=== PATIENT | male | born 1945 | race Caucasian/White ===

== ENCOUNTER 2018-02-19 12:57 | Inpatient (IN) | payer OTHER ==
[~2018-02-19] VITALS: Ht 170.2 cm; Wt 73.3 kg
[2018-02-19] MEDS ORDERED: SODIUM BICARBONATE 8.4% 50 ML VIAL IV STA ×2 (13:01→13:05)
[2018-02-19] MEDS ORDERED: DEXTROSE 50% SYRINGE 50 ML IV STA (13:01)
[2018-02-19] MEDS ORDERED: INSULIN REGULAR, HUMAN 100 UNIT/1 ML 3ML VIAL IV ONE (13:15)
[2018-02-19] MEDS ORDERED: ASPIRIN 81 MG CHEW TAB PO ONE (13:30)
[2018-02-19 13:39] LABS: BASOPHILS % 0.2 % (0.0-1.0); EOSINOPHILS % 0.2 % (0.0-6.0); HEMATOCRIT 38.7 % (38.2-49.6); HEMOGLOBIN 12.6 g/dL (14.0-18.0); LYMPHOCYTES % 5.6 % (18.0-39.1); MEAN CORPUSCULAR HEMOGLOBIN 29.4 pg (28-32); MEAN CORPUSCULAR HGB CONC 32.6 g/dL (31-35); MEAN CORPUSCULAR VOLUME 90.2 fL (81-99); MONOCYTES # (AUTO) 0.7 (0.2-0.8); MONOCYTES % 4.2 % (4.4-11.3); NEUTROPHILS # (AUTO) 15.2 (2.1-6.9); NEUTROPHILS % 89.1 % (38.7-80.0); PLATELET COUNT 455 x10e3/uL (140-360); RED BLOOD COUNT 4.29 x10e6/uL (4.3-5.7); RED CELL DISTRIBUTION WIDTH 15.5 % (11.7-14.4)
[2018-02-19 13:43] LABS: INR 1.17
[2018-02-19 13:44] LABS: PARTIAL THROMBOPLASTIN TIME 39.5 seconds (23.8-35.5)
[2018-02-19 13:52] LABS: ALANINE AMINOTRANSFERASE 9 IU/L (0-55); ALBUMIN 2.8 g/dL (3.5-5.0); ALBUMIN/GLOBULIN RATIO 0.8 (0.8-2.0); ALKALINE PHOSPHATASE 56 IU/L (40-150); ANION GAP 14.2 mmol/L (8-16); BLOOD UREA NITROGEN 7 mg/dL (7-26); BUN/CREATININE RATIO 9 (6-25); CALCIUM 9.3 mg/dL (8.4-10.2); CARBON DIOXIDE 31 mmol/L (22-29); CHLORIDE 97 mmol/L (98-107); CREATINE KINASE 79 IU/L (30-200); CREATININE, SERUM 0.75 mg/dL (0.72-1.25); EST GLOMERULAR FILTRATION RATE > 60 ML/MIN (60-); GLUCOSE 88 mg/dL (74-118); POTASSIUM 3.2 mmol/L (3.5-5.1); SODIUM 139 mmol/L (136-145)
--- NOTE | 2018-02-19 14:46 | Diagnostic Imaging Report ---
EXAMINATION: CHEST SINGLE (NOT PORTABLE) INDICATION: Chest pain COMPARISON: None FINDINGS: TUBES and LINES: None. LUNGS: The lungs are hyperinflated. Linear opacity at the right lung base may reflect atelectasis or scarring. There is no evidence of pneumonia or pulmonary edema. PLEURA: Small right pleural effusion. There is either pleural thickening or a loculated pleural effusion on the left. HEART AND MEDIASTINUM: The cardiomediastinal silhouette is unremarkable. BONES AND SOFT TISSUES: No acute osseous lesion. Soft tissues are unremarkable. UPPER ABDOMEN: No free air under the diaphragm. No evidence of displaced fracture. IMPRESSION: Left sided pleural thickening which may reflect soft tissue or loculated left sided pleural effusion. Comparison with prior imaging or a chest CT may be considered for further evaluation. Small right pleural effusion with right basilar opacity, likely atelectasis or scarring. Emphysematous changes of the lungs. Signed by: Dr. Prakash Cain MD on 02/19/2018 2:43 PM
[2018-02-19 16:39] LABS: CLARITY,URINE SL CLOUDY (CLEAR); COLOR,URINE YELLOW (YELLOW); LEUKOCYTE ESTERASE ,URINE TRACE (NEGATIVE); NITRITE,URINE NEGATIVE (NEGATIVE); PROTEIN,URINE DIPSTICK 2+ (NEGATIVE)
[2018-02-19 16:40] LABS: BILIRUBIN,URINE 2+ (NEGATIVE); KETONES,URINE TRACE (NEGATIVE); URINE UROBILINOGEN 1 mg/dL (0.2 - 1)
[2018-02-19 16:51] LABS: BACTERIA,URINE MODERATE /HPF; EPITHELIAL CELLS,URINE FEW /LPF; RBC,URINE 0-5 /HPF (0-5); YEAST,URINE MODERATE
[2018-02-19] MEDS: SODIUM CHLORIDE 0.9% 1000ML 1,000 ML IV SCH (17:41)
[2018-02-19] MEDS: PIPER-TAZ 3.375 GM 50 ML IV SCH (17:41)
[2018-02-19 19:00] VITALS: BP 102/54
[2018-02-19 20:13] VITALS: BP 102/54
[2018-02-19] MEDS: VANCOMYCIN 1GM/NS 250 ML 250 ML IV SCH (21:02)
[2018-02-19] MEDS: MORPHINE SULFATE 2 MG/ML SYR IV PRN (21:03)
[2018-02-19] MEDS ORDERED: VITAMIN D1000 UNI1 PO (22:49)
[2018-02-19] MEDS ORDERED: FLOMAX0.4 MG PO (22:49)
[2018-02-19] MEDS ORDERED: GABAPENTIN300 MG PO (22:49)
[2018-02-19] MEDS ORDERED: BENZONATATE100 MG PO (22:49)
[2018-02-19] MEDS ORDERED: PENTOXIFYLLINE400 MG PO (22:49)
[2018-02-19] MEDS ORDERED: OMEPRAZOLE40 MG PO (22:49)
[2018-02-19] MEDS ORDERED: FENOFIBRATE145 MG PO (22:49)
[2018-02-19] MEDS ORDERED: ALLOPURINOL300 MG PO (22:49)
[2018-02-19] MEDS ORDERED: ALPRAZOLAM0.5 M1 (22:49)
[2018-02-19] MEDS ORDERED: COLCRYS0.6 MG PO (22:49)
[2018-02-19] MEDS ORDERED: VENTOLIN HFA18 GM INH (22:53)
[2018-02-19] MEDS ORDERED: METHOCARBAMOL750 MG PO (22:53)
[2018-02-19] MEDS ORDERED: LEVALBUTER0.63 MG/3 NEB (22:53)
[2018-02-20 00:01] VITALS: BP 108/76
[2018-02-20] MEDS: PIPER-TAZ 3.375 GM 50 ML IV SCH ×4 (00:08→21:27)
[2018-02-20 05:02] VITALS: BP 108/53
[2018-02-20 05:17] LABS: BASOPHILS # (AUTO) 0.1 (0.0-0.1); BASOPHILS % 0.5 % (0.0-1.0); EOSINOPHILS # (AUTO) 0.2 (0.0-0.4); EOSINOPHILS % 1.9 % (0.0-6.0); HEMATOCRIT 32.7 % (38.2-49.6); HEMOGLOBIN 10.6 g/dL (14.0-18.0); LYMPHOCYTES # (AUTO) 1.4 (1.0-3.2); LYMPHOCYTES % 13.5 % (18.0-39.1); MEAN CORPUSCULAR HEMOGLOBIN 29.3 pg (28-32); MEAN CORPUSCULAR HGB CONC 32.4 g/dL (31-35); MEAN CORPUSCULAR VOLUME 90.3 fL (81-99); MONOCYTES # (AUTO) 0.6 (0.2-0.8); MONOCYTES % 5.6 % (4.4-11.3); NEUTROPHILS # (AUTO) 7.9 (2.1-6.9); NEUTROPHILS % 77.3 % (38.7-80.0); PLATELET COUNT 385 x10e3/uL (140-360); RED BLOOD COUNT 3.62 x10e6/uL (4.3-5.7); RED CELL DISTRIBUTION WIDTH 15.7 % (11.7-14.4)
[2018-02-20 05:50] LABS: ANION GAP 11.7 mmol/L (8-16); BLOOD UREA NITROGEN 7 mg/dL (7-26); BUN/CREATININE RATIO 10 (6-25); CALCIUM 8.4 mg/dL (8.4-10.2); CARBON DIOXIDE 29 mmol/L (22-29); CHLORIDE 100 mmol/L (98-107); CREATININE, SERUM 0.68 mg/dL (0.72-1.25); EST GLOMERULAR FILTRATION RATE > 60 ML/MIN (60-); GLUCOSE 83 mg/dL (74-118); MAGNESIUM 1.5 MG/DL (1.3-2.1); SODIUM 138 mmol/L (136-145)
[2018-02-20 05:53] LABS: POTASSIUM 2.7 mmol/L (3.5-5.1)
[2018-02-20] MEDS ORDERED: POTASSIUM CHLORIDE 20 MEQ TAB CR PO STA (05:57)
[2018-02-20 06:13] LABS: CREATINE KINASE MB 0.7 ng/mL (0-5.0)
[2018-02-20 07:24] VITALS: BP 106/53
[2018-02-20] MEDS: SODIUM CHLORIDE 0.9% 1000ML 1,000 ML IV SCH ×2 (08:03→19:57)
[2018-02-20] MEDS: VANCOMYCIN 1GM/NS 250 ML 250 ML IV SCH ×2 (08:03→21:45)
[2018-02-20] MEDS: HYDROCODONE/APAP 5MG-325MG TAB PO PRN ×2 (09:53→16:35)
[2018-02-20] MEDS ORDERED: POTASSIUM CHLORIDE 20 MEQ TAB CR PO ONE (10:00)
--- NOTE | 2018-02-20 13:53 | History and Physical ---
CHIEF COMPLAINT: Fall. HISTORY OF PRESENT ILLNESS: This is a 72-year-old male with a past medical history of medical debilitation, seems to have also sacral wounds, a very poor historian in which he reports that he was at home in the bathroom in which he wanted to sit down on the edge of the bathtub and then slid himself to the ground. He denies falling to the ground. He denies any palpitations or chest pain. He denies any lightheadedness or dizziness. There are no reports of any weakness, slurred speech or any facial droop. Patient was seen and evaluated at bedside on the medical floor. Currently doing well with no other complaints at this time. In examining the patient, patient has significant sacral wounds in which he will likely need general surgery consultation. REVIEW OF SYSTEMS: PERTINENT POSITIVE: Patient slid to the ground. Multiple sacral wounds. PERTINENT NEGATIVE: Denies any chest pain, palpitation, nausea, vomiting, diarrhea, dysuria, hematuria, frequency, urgency, lightheadedness, dizziness, abdominal pain, headache, shortness of breath, cough, congestion, fever or any other complaints. REST OF THE 14 POINT REVIEW OF SYSTEMS: Have been reviewed with the patient and are negative. ALLERGIES: NO KNOWN DRUG ALLERGIES. HOME MEDICATIONS: Currently not available. The patient is a poor historian and has not provided us with the medications for home. PAST MEDICAL HISTORY: I know he is medically debilitated, has multiple sacral wounds. We do not have his home medications to assess his past medical issues. SURGICAL HISTORY: He has had wound debridements in the past. FAMILY HISTORY: Hypertension, diabetes. SOCIAL HISTORY: No drugs, no alcohol. He does not smoke. 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 VITAL SIGNS: Temperature is 98.1, pulse 61, respiratory rate is 18, blood pressure 106/53, pulse ox 94% on 1.5 liters of nasal cannula. LABORATORY DATA: Show white count is 10, hemoglobin 10.6, hematocrit is 32.7, platelets of 385. CHEMISTRY: Sodium 138, potassium 2.7, chloride is 100, bicarb is 29, anion gap of 11, BUN is 7, creatinine is 0.68, glucose is 83. Lactic acid 9.2, which is normal here. Calcium 8.4, magnesium 1.5. His troponins were all negative times 3. Albumin 2.8. Urinalysis: Trace leukocyte esterase, negative nitrite. Blood cultures are pending. IMAGING STUDIES: Chest x-ray shows left-sided pleural thickening which may represent soft tissue or likely a left-sided pleural effusion. Comparison with the CT chest would help further evaluation. PHYSICAL EXAM: GENERAL: Not in acute distress, alert, oriented times 3, cooperative on examination. HEENT: Head: Normocephalic, atraumatic. Eyes: Pupils equally round and reactive to light bilaterally. Extraocular muscles intact bilaterally. Neck: Supple. Good range of motion. Throat: No evidence of any erythema or exudates in the posterior pharynx, has poor dentition. PULMONARY: Clear to auscultation bilaterally. No wheezing, no rales, no rhonchi, no crackles appreciated. CARDIOVASCULAR: Positive S1, S2. No murmurs, rubs or gallops appreciated. ABDOMEN: Soft, nondistended, nontender to palpation. Bowel sounds positive. MUSCULOSKELETAL: Strength is 5/5 throughout. No evidence of any muscle deficit on examination. No weakness appreciated. He has an unstageable sacral wound with concerns of underlying whitish material and underlying infection. NEUROLOGIC: Cranial nerves 2-12 were grossly intact. N evidence of any neurological deficit on exam. SKIN: Intact, warm to touch. Good cap refill. PSYCHIATRIC: Normal affect and mood. EXTREMITIES: No edema. Good range of motion throughout. IMPRESSION: 1. Syncope but intentional in which the patient reports he slid to the ground. 2. Medically debilitated. 3. Unstageable sacral wounds concerning for infection. 4. History of anxiety. 5. Acid reflux. PLAN: At this time his troponins were negative. There are no reports of any seizure-like activity or any stroke-like symptoms. Patient reports that he slid to the ground to avoid a fall and he had no other symptoms when this occurred. From that standpoint, there is no further workup needed; but in relation to his unstageable sacral wounds, we are going to get general surgery consultation, get wound cultures and IV antibiotics. We are going to place on IV fluids. Get an ID consult and general surgery consultation. His chest x-ray shows concerning of pleural effusion or possible like some loculation, in which I will get a CT chest with IV contrast. We are going to replace the potassium. I am going to convert the patient from OBS to inpatient for further management and care. Put the patient on Lovenox, and he is on regular diet. Will get PT and OT evaluation. Patient will likely need shelter. Job#: [id number] EV
[2018-02-20 16:00] VITALS: BP_SYST 106; BP_SYST 116; BP_DIAS 53; BP_DIAS 71
[2018-02-20] MEDS: ENOXAPARIN SOD INJ 40 MG/0.4 ML SYR SC SCH (16:34)
[2018-02-20] MEDS: LORAZEPAM 0.5 MG TAB PO PRN (16:34)
--- NOTE | 2018-02-20 18:12 | Consultation ---
DATE OF CONSULTATION: INFECTIOUS DISEASE CONSULTATION REASON FOR CONSULTATION: Recommendation of antibiotic, decubitus ulcer. HISTORY OF PRESENT ILLNESS: This is a patient who is a 72-year-old white male who has history of multiple admissions. He is debilitated. The patient is bedbound, comes in with worsening condition overall. Apparently he fell. It was noted he had multiple decubitus ulcers, pressure ulcers; so, Infectious Disease was consulted to make recommendation towards antibiotic. The patient is not a good source of information at the present time, but he is lying in bed and I do not have any other information at the present time. LABORATORY DATA: Blood cultures pending. Admission white count 17, hemoglobin 12, hematocrit 38. Sodium 138, potassium 2.7, creatinine 0.68, calcium 8.4. PHYSICAL EXAMINATION: GENERAL: He is currently alert, oriented, does not seem to be in acute distress. VITALS: Stable, currently afebrile. HEENT: He does not appear icteric. NECK: Supple. CHEST: Clear. HEART: S1/S2. No S3, no S4. No murmur. ABDOMEN: Soft. BACK: He did have a decubitus ulcer on the sacral area which is unstageable at the present time. IMPRESSION: Decubitus ulcers sacral area pressure, will probably need surgical debridement. Obtain CT of scrotum and a CT of the sacral area and agree with vancomycin and Zosyn. Further recommendations to follow. Job#: [id number] EV
--- NOTE | 2018-02-20 18:20 | Diagnostic Imaging Report ---
EXAM: CT Chest WITH contrast 02/20/2018 11:54 AM INDICATION: \S\LOCULATED EFFUSION SEEN ON CXR \S\[id number] \S\[id number] COMPARISON: Chest radiograph 02/19/2018 TECHNIQUE: Chest was scanned utilizing a multidetector helical scanner from the lung apex through the level of the adrenal glands after administration of IV contrast. Coronal and sagittal reformations were obtained. IV CONTRAST: 100 mL of Isovue-370 ORAL CONTRAST: None COMPLICATIONS: None RADIATION DOSE: Total DLP: 534.9 mGy*cm Estimated effective dose: (DLP x 0.015 x size factor) mSv CTDIvol has been reviewed. It is below the limits set by the Radiation Protocol Committee (RPC). FINDINGS: LINES/ TUBES: None. LUNGS AND AIRWAYS: Medial right upper lobe pleural-based consolidation/masslike, measuring 3.4 x 2.5 cm and associated with surrounding septal thickening and bronchiectasis (series 3, image 35). Pleural-based consolidation in the right lower lobe with adjacent swirling of the vessels suggestive of round atelectasis. No suspicious pulmonary nodules or masses on the left. Moderate bilateral upper lobe predominant centrilobular and paraseptal emphysema. PLEURA: Trace low-attenuation right pleural effusion. Trace left pleural effusion with minimal pleural thickening and associated inward displacement of the left lateral chest wall due to multiple left-sided rib fractures correspond to the abnormality seen on chest radiograph. HEART AND MEDIASTINUM: The thyroid gland is normal. Few nonspecific subcentimeter right hilar and subcarinal lymph nodes. The right ventricle appears enlarged. The left ventricle is borderline in size. There is no pericardial effusion. Extensive coronary artery calcifications. Tortuous thoracic aorta and proximal arch branch vessels results in mild rightward deviation of the upper trachea. Moderate atherosclerotic calcification throughout the thoracic aorta and arch branch vessels. The main pulmonary artery is mildly enlarged measuring 3.4 cm in diameter. UPPER ABDOMEN: Few scattered hypodensities less than a centimeter throughout the liver are too small to characterize but may represent cysts. Mild thickening of the left adrenal gland without discrete nodule. BONES: Multiple bilateral healed rib fractures, including 4, 5, 6, 7, 8, and 9 on the right and 6, 7, 8, and 9 on the left with persistent nonunion of the bony fragments. Moderate multilevel degenerative changes of the thoracic spine. SOFT TISSUES: Unremarkable. IMPRESSION: 1. Multiple bilateral displaced rib fractures with minimal adjacent pleural thickening/chronic effusion accounts for the abnormality seen on chest radiograph. 2. Small right pleural effusion. 3. Right upper paratracheal consolidation/masslike may represent area of fibrosis related to prior infection. Recommend follow-up CT chest without contrast in 3 months. If patient is symptomatic or if high concern for malignancy, then recommend further evaluation with PET/CT. 4. Bilateral emphysema. Signed by: Dr. Marisol Parkinson M.D. on 02/20/2018 6:17 PM
[2018-02-20] MEDS ORDERED: SODIUM CHLORIDE 0.9% 50ML 50 ML ONE (18:28)
[2018-02-20] MEDS ORDERED: IOPAMIDOL 370 MG/ML 200 ML INFUS..BTL INJ ONE (18:28)
[2018-02-20 20:00] VITALS: BP 121/71
[2018-02-20] MEDS: ONDANSETRON HCL INJ 2 MG/ML VIAL IV PRN (20:09)
[2018-02-20] MEDS: MORPHINE SULFATE 2 MG/ML SYR IV PRN (20:09)
[2018-02-20 21:00] VITALS: BP 121/71
[2018-02-21] VITALS: BP 119/59
[2018-02-21] MEDS: LORAZEPAM 0.5 MG TAB PO PRN ×2 (00:03→16:08)
[2018-02-21] MEDS: HYDROCODONE/APAP 5MG-325MG TAB PO PRN ×3 (03:54→23:16)
[2018-02-21 04:00] VITALS: BP 126/60
[2018-02-21 05:38] LABS: BASOPHILS # (AUTO) 0.1 (0.0-0.1); BASOPHILS % 0.8 % (0.0-1.0); EOSINOPHILS # (AUTO) 0.4 (0.0-0.4); EOSINOPHILS % 6.2 % (0.0-6.0); HEMATOCRIT 32.7 % (38.2-49.6); HEMOGLOBIN 10.3 g/dL (14.0-18.0); LYMPHOCYTES # (AUTO) 1.2 (1.0-3.2); LYMPHOCYTES % 18.7 % (18.0-39.1); MEAN CORPUSCULAR HEMOGLOBIN 28.7 pg (28-32); MEAN CORPUSCULAR HGB CONC 31.5 g/dL (31-35); MEAN CORPUSCULAR VOLUME 91.1 fL (81-99); MONOCYTES # (AUTO) 0.4 (0.2-0.8); MONOCYTES % 6.6 % (4.4-11.3); NEUTROPHILS # (AUTO) 4.5 (2.1-6.9); NEUTROPHILS % 67.2 % (38.7-80.0); PLATELET COUNT 359 x10e3/uL (140-360); RED BLOOD COUNT 3.59 x10e6/uL (4.3-5.7); RED CELL DISTRIBUTION WIDTH 15.6 % (11.7-14.4)
[2018-02-21 05:59] LABS: ANION GAP 11.3 mmol/L (8-16); BLOOD UREA NITROGEN 6 mg/dL (7-26); BUN/CREATININE RATIO 9 (6-25); CALCIUM 8.5 mg/dL (8.4-10.2); CARBON DIOXIDE 27 mmol/L (22-29); CHLORIDE 104 mmol/L (98-107); CREATININE, SERUM 0.64 mg/dL (0.72-1.25); EST GLOMERULAR FILTRATION RATE > 60 ML/MIN (60-); GLUCOSE 79 mg/dL (74-118); POTASSIUM 3.3 mmol/L (3.5-5.1); SODIUM 139 mmol/L (136-145)
[2018-02-21] MEDS: PIPER-TAZ 3.375 GM 50 ML IV SCH ×3 (06:01→20:55)
[2018-02-21] MEDS: VANCOMYCIN 1GM/NS 250 ML 250 ML IV SCH ×2 (07:59→22:06)
[2018-02-21 08:00] VITALS: BP_SYST 126; BP_SYST 129; BP_DIAS 60; BP_DIAS 69
--- NOTE | 2018-02-21 08:56 | Consultation ---
DATE OF CONSULTATION: February 21, 2018 REFERRING PHYSICIAN: Dr. Tash Cao The patient is a 72-year-old male who was admitted the hospital after slipping to the ground and being unable to get up. He was found to have a sacral ulcer, as well as a superficial skin tear on his leg. Patient apparently frequently has problems with falling to the ground and being unable to get up. The patient does not give any further details of the events. He apparently has had the ulcer on his sacrum for quite a long time. PAST MEDICAL HISTORY: Significant for chronic medical debilitation, chronic sacral wounds. ALLERGIES: HE HAS NO ALLERGIES. Apparently, has had previous wound debridements. Further details of any surgery are not available. FAMILY HISTORY: Significant for hypertension and diabetes. SOCIAL HISTORY: The patient does not smoke cigarettes or drink alcohol. REVIEW OF SYSTEMS: As stated above although very limited. The patient gives a very limited history. He has not had any fever. PHYSICAL EXAMINATION GENERAL: The patient is awake and alert. VITALS: Normal. HEENT: Reveals no scleral icterus. NECK: Has no masses. LUNGS: Equal breath sounds are clear bilaterally. CARDIAC: Regular rate and rhythm with no murmur. ABDOMEN: Soft. There is no tenderness. No mass. EXTREMITIES: There is a skin tear with superficial skin loss in the left lateral lower leg. SKIN: There is an ulcer on the sacrum, which is full-thickness skin and with undermining and some purulent drainage. LAB TESTS: The white blood cell count today is normal and was 17,000 on admission, hemoglobin 10, hematocrit 32. Chemistries essentially normal except for slightly low potassium. ASSESSMENT: A 72-year-old male with chronic sacral ulcer with considerable undermining. At some point, once he is medically stable he will likely benefit from debridement of this ulcer. This was explained to the patient. There are no findings that would warrant immediate surgical intervention. Proposed surgery will probably be done sometime in the coming week. Thank you for asking me to see Mr. Valdez. Job#: [id number] BUNNY
[2018-02-21 12:00] VITALS: BP 133/66
[2018-02-21] MEDS: SODIUM CHLORIDE 0.9% 1000ML 1,000 ML IV SCH (12:00)
--- NOTE | 2018-02-21 12:56 | Progress Note ---
DATE: February 21, 2018 SUBJECTIVE: Patient is doing well with no complaints. He is scheduled for possible debridement on Thursday by general surgery. ID is following as well. His blood cultures were positive. Wound cultures are pending. OBJECTIVE VITAL SIGNS: Temperature is 96.9, pulse 79, respiratory rate 20, blood pressure 129/69, pulse ox 100% on 2 L nasal cannula. GENERAL: Not in acute distress. Alert and oriented times 3. Cooperative on examination. HEENT: Head is normocephalic and atraumatic. Eyes: Pupils equal, round and reactive to light bilaterally. Extraocular movements intact bilaterally. NECK: Supple. Good range of motion. Throat with no evidence of any erythema or exudates in the posterior pharynx. Has poor dentition. PULMONARY: Clear to auscultation bilaterally. No wheezing. No rales. No rhonchi. No crackles appreciated. CARDIOVASCULAR: Positive S1 and S2. No murmurs, rubs or gallops appreciated. ABDOMEN: Soft, nondistended and nontender to palpation. Bowel sounds present. MUSCULOSKELETAL: Strength is 5/5 throughout. No evidence of any muscle deficit on examination. No weakness appreciated. NEUROLOGICAL: Cranial nerves II-XII are grossly intact. No evidence of any neurological deficits on exam. SKIN: Intact. Warm to touch. Good cap refill. PSYCHIATRIC: Normal affect and mood. EXTREMITIES: No edema. Good range of motion throughout. LAB FINDINGS: Show white count is 6.6, hemoglobin 10.3, hematocrit 33, and platelets of 359,000. Chemistry: Sodium is 139, potassium 3.3, chloride 104, bicarb 27, anion gap of 11, BUN 6, creatinine 0.64, glucose is 79. Calcium is 8.5. IMPRESSION 1. Syncope, intentionally slipped to the ground. 2. Medically debilitated. 3. Unstageable sacral wounds with underlying infection. 4. History of anxiety. 5. Acid reflux. 6. Hypokalemia. PLAN: At this time, he is scheduled likely for Thursday to have a surgical debridement of his sacral wound. Continue with IV vanc and Zosyn. Will get CT of pelvis tomorrow with IV contrast as per ID recommendations. Replace his potassium. Continue with Lovenox for DVT prophylaxis. PT and OT eval. The patient in the long run will likely benefit from senior living facility. If not, a 24-hour continuous care like a halfway. Job#: [id number] RI
[2018-02-21] MEDS ORDERED: POTASSIUM CHLORIDE 10 MEQ TABCR PO ONE (14:30)
[2018-02-21] MEDS ORDERED: POTASSIUM CHLORIDE 20 MEQ TAB CR PO ONE (14:30)
[2018-02-21 16:00] VITALS: BP 97/68
[2018-02-21] MEDS: ENOXAPARIN SOD INJ 40 MG/0.4 ML SYR SC SCH (16:08)
[2018-02-21] MEDS ORDERED: GLYCOPYRROLATE INJ 1MG/ 5 ML SYR ONE (17:56)
[2018-02-21] MEDS ORDERED: NEOSTIGMINE 5 MG/5ML SYR ONE (17:56)
[2018-02-21] MEDS ORDERED: LIDOCAINE HCL 2% JELLY 5 ML TUBE ONE (17:56)
[2018-02-21] MEDS ORDERED: ROCURONIUM BROMIDE 10 MG/ML 5ML VIAL ONE (17:56)
[2018-02-21] MEDS ORDERED: LIDOCAINE HCL 2% LOCAL INJ 5 ML SDV VIAL INJ ONE (17:56)
[2018-02-21] MEDS ORDERED: SEVOFLURANE INHAL SOLN 250 ML PEN BTL ONE (17:56)
[2018-02-21] MEDS ORDERED: PROPOFOL IV EMULSION 10 MG/ML 20 ML VIAL ONE (17:56)
[2018-02-21 20:00] VITALS: BP 119/58
[2018-02-21] MEDS: ALPRAZOLAM 0.5 MG TAB PO PRN (20:55)
[2018-02-22] VITALS (9 sets, daily range): BP systolic 90–135; BP diastolic 58–73
[2018-02-22] MEDS: SODIUM CHLORIDE 0.9% 1000ML 1,000 ML IV SCH ×3 (02:16→22:02)
[2018-02-22 05:32] LABS: BASOPHILS # (AUTO) 0.1 (0.0-0.1); BASOPHILS % 0.8 % (0.0-1.0); EOSINOPHILS # (AUTO) 0.4 (0.0-0.4); EOSINOPHILS % 7.2 % (0.0-6.0); HEMATOCRIT 33.9 % (38.2-49.6); HEMOGLOBIN 10.8 g/dL (14.0-18.0); LYMPHOCYTES # (AUTO) 1.5 (1.0-3.2); LYMPHOCYTES % 24.4 % (18.0-39.1); MEAN CORPUSCULAR HGB CONC 31.9 g/dL (31-35); MEAN CORPUSCULAR VOLUME 90.9 fL (81-99); MONOCYTES # (AUTO) 0.5 (0.2-0.8); MONOCYTES % 7.3 % (4.4-11.3); NEUTROPHILS # (AUTO) 3.7 (2.1-6.9); PLATELET COUNT 359 x10e3/uL (140-360); RED BLOOD COUNT 3.73 x10e6/uL (4.3-5.7); RED CELL DISTRIBUTION WIDTH 15.3 % (11.7-14.4)
[2018-02-22 05:52] LABS: ANION GAP 12.7 mmol/L (8-16); BLOOD UREA NITROGEN < 5 mg/dL (7-26); CALCIUM 8.4 mg/dL (8.4-10.2); CARBON DIOXIDE 26 mmol/L (22-29); CHLORIDE 102 mmol/L (98-107); CREATININE, SERUM 0.61 mg/dL (0.72-1.25); EST GLOMERULAR FILTRATION RATE > 60 ML/MIN (60-); GLUCOSE 67 mg/dL (74-118); MAGNESIUM 1.7 MG/DL (1.3-2.1); POTASSIUM 3.7 mmol/L (3.5-5.1); SODIUM 137 mmol/L (136-145)
[2018-02-22] MEDS: PIPER-TAZ 3.375 GM 50 ML IV SCH ×3 (05:53→23:03)
[2018-02-22 05:56] LABS: BUN/CREATININE RATIO 8 (6-25)
[2018-02-22] MEDS: HYDROCODONE/APAP 5MG-325MG TAB PO PRN ×2 (07:00→21:56)
--- NOTE | 2018-02-22 09:09 | Progress Note ---
DATE: February 22, 2018 SUBJECTIVE: Patient is doing well with no other issues. I believe he is scheduled for debridement tomorrow by general surgery. ID wanted a CT of pelvis with IV contrast will be ordered. OBJECTIVE VITAL SIGNS: Temperature is 98.4, pulse 71, respiratory rate 18, blood pressure 119/61, pulse ox is 97% and he is on 3 L nasal cannula. GENERAL: Not in acute distress. Alert and oriented times 3. Cooperative on examination. HEENT: Head is normocephalic and atraumatic. Eyes: Pupils equal, round and reactive to light bilaterally. Extraocular movements intact bilaterally. NECK: Supple. Good range of motion. Throat with no evidence of any erythema or exudates in the posterior pharynx. Has poor dentition. PULMONARY: Clear to auscultation bilaterally. No wheezing. No rales. No rhonchi. No crackles appreciated. CARDIOVASCULAR: Positive S1 and S2. No murmurs, rubs or gallops appreciated. ABDOMEN: Soft, nondistended and nontender to palpation. Bowel sounds present. MUSCULOSKELETAL: Strength is 5/5 throughout. No evidence of any muscle deficit on examination. No weakness appreciated. NEUROLOGICAL: Cranial nerves II-XII are grossly intact. No evidence of any neurological deficits on exam. SKIN: Intact. Warm to touch. Good cap refill. PSYCHIATRIC: Normal affect and mood. EXTREMITIES: No edema. Good range of motion throughout. LAB FINDINGS: Show white count of 6.1, hemoglobin 10.8, hematocrit 34, and platelets of 359,000. Chemistry: Sodium 137, potassium 3.7, chloride 102, bicarb 26, anion gap of 12, BUN 5, creatinine 0.61. Magnesium 1.7. MICROBIOLOGY: There is some growth of gram-positive cocci in clusters. Wound cultures just moderate wbcs. Pending identification. IMAGING STUDIES: None. IMPRESSION 1. Syncope, intentionally slipped to the ground. 2. Medically debilitated. 3. Unstageable sacral wounds with underlying infection: Left lower extremity wound. 4. History of anxiety. 5. Acid reflux. 6. Hypokalemia, resolved. PLAN: At this time, he is scheduled for debridement on Thursday is what I understood from general surgery. He is currently not on the schedule, but general surgery has not rounded yet. Continue with IV antibiotics of vancomycin and Zosyn. ID is following. Will go ahead and order the CT of pelvis with IV contrast as per ID recommendations. Continue Lovenox for DVT prophylaxis. Continue working with PT and OT. He will likely end up in a intermediate facility due to his medical debilitation. The patient will be here for several more days for further management and care. Job#: [id number] BUNNY
[2018-02-22] MEDS: VANCOMYCIN 1GM/NS 250 ML 250 ML IV SCH (09:58)
[2018-02-22] MEDS: PANTOPRAZOLE SOD 40 MG TABEC PO SCH (10:16)
[2018-02-22] MEDS: PENTOXIFYLLINE 400 MG TAB CR PO SCH (10:16)
[2018-02-22] MEDS: GABAPENTIN 300 MG CAP PO SCH (10:16)
[2018-02-22] MEDS: TAMSULOSIN HCL 0.4 MG CAP PO SCH (10:16)
[2018-02-22] MEDS ORDERED: ALBUTEROL/IPRATROPIUM 3 ML NEB NEB SCH (11:00)
[2018-02-22] MEDS: LEVALBUTEROL HCL SOLN NEBU 0.63 MG/3 ML NEB INH SCH ×3 (15:20→23:05)
[2018-02-22] MEDS: ENOXAPARIN SOD INJ 40 MG/0.4 ML SYR SC SCH (17:04)
[2018-02-22] MEDS: ALPRAZOLAM 0.5 MG TAB PO PRN (23:03)
[2018-02-23] VITALS (8 sets, daily range): BP systolic 99–131; BP diastolic 53–71
[2018-02-23] MEDS: LEVALBUTEROL HCL SOLN NEBU 0.63 MG/3 ML NEB INH SCH ×6 (02:42→23:45)
[2018-02-23] MEDS: HYDROCODONE/APAP 5MG-325MG TAB PO PRN ×4 (04:00→21:10)
[2018-02-23] MEDS ORDERED: LIDOCAINE HCL 1% LOCAL INJ 20 ML VIAL ONE (08:08)
[2018-02-23] MEDS: FENOFIBRATE 160 MG TAB PO SCH (09:00)
--- NOTE | 2018-02-23 09:08 | Progress Note ---
DATE: February 23, 2018 SUBJECTIVE: Patient is currently in the OR. I was unable to see him. OBJECTIVE: Vital signs: Temperature is 96.6, pulse 68, respiratory rate 18, blood pressure 131/71, pulse ox 98% on 2 L nasal cannula. Currently, he is in the OR and unable to perform examination. LAB FINDINGS: White count 6.1, hemoglobin 10.8, hematocrit 34, and platelets of 359. Chemistry: Sodium 137, potassium 3.7, chloride 102, bicarb 26, creatinine 0.61, BUN less than 5. MICROBIOLOGY: His wound culture shows MRSA. His blood cultures are coag-negative positive 2 out of 2. IMAGING STUDIES: He refused a CT pelvis yesterday. IMPRESSION 1. Syncope, intentionally slipped to the ground. 2. Medically debilitated. 3. Unstageable sacral wounds with underlying infection. Now in the operating room to have debridement. 4. Left lower extremity wound. 5. History of anxiety. 6. Acid reflux. PLAN: At this time, the patient is currently in the OR, and I was unable to evaluate him. We are going to continue the same plan of care. His wound culture is positive for MRSA. Blood cultures are coag-negative staph times 2. The patient is on IV antibiotics, and ID is following. The overall plan is to discharge the patient eventually to a fpc facility, requiring IV antibiotics long term care phlebotomist. The only issue is I do not know the length of therapy of the IV antibiotics, which we will find out by ID. The patient would benefit likely going to a fpc facility, though I feel he does not want to go there. I addressed this with the nursing staff to talk with case management, so case management can talk to the patient. Will continue with PT and OT while here. Job#: [id number]
[2018-02-23] MEDS: PIPER-TAZ 3.375 GM 50 ML IV SCH ×2 (10:18→16:13)
[2018-02-23] MEDS: TAMSULOSIN HCL 0.4 MG CAP PO SCH (10:18)
[2018-02-23] MEDS: PENTOXIFYLLINE 400 MG TAB CR PO SCH (10:19)
[2018-02-23] MEDS: GABAPENTIN 300 MG CAP PO SCH (10:19)
[2018-02-23] MEDS: PANTOPRAZOLE SOD 40 MG TABEC PO SCH (10:19)
[2018-02-23] MEDS: VANCOMYCIN 1GM/NS 250 ML 250 ML IV SCH ×2 (12:38→21:00)
--- NOTE | 2018-02-23 13:13 | Operative Report ---
DATE OF PROCEDURE: February 23, 2018 PREOPERATIVE DIAGNOSIS: Sacral ulcer. POSTOPERATIVE DIAGNOSIS: Sacral ulcer. PROCEDURE: Excisional debridement of sacral ulcer, skin, and subcutaneous tissue, 80 sq. cm. STAFF DEVELOPMENT MANAGER: None. ANESTHESIA: General endotracheal. INDICATIONS AND FINDINGS: Patient is a 72-year-old male admitted to the hospital after a fall, has ulcer on his sacrum with a large undermined area with purulent drainage. Surgery was done on large undermined area about 8 x 10 cm from ulcer, which was opened up and excised back to healthy tissue. There was granulation tissue and small amount of purulence. Sample taken for culture and sensitivity. Area of debridement was about 8 x 10 cm. TECHNIQUE: After adequate general endotracheal anesthesia with patient in right side down position, the sacral area was prepped and draped in sterile fashion with Betadine solution. The sacral ulcer was excised. There was a large undermined area and this was excised back to healthy tissue. There was no undermining. The area of debridement was about 8 x 10 cm, involved skin and subcutaneous tissue. Culture was taken from the wound. Once all the undermined tissue was excised, some granulation tissue was cauterized. Hemostasis was achieved with electrocautery. The wound was irrigated with saline. It was then dressed up with saline moistened gauze and a sterile dressing applied. The patient tolerated the procedure well. Estimated blood loss was 50 mL. There were no complications. All counts were correct. Patient was taken to the recovery room in satisfactory condition. Job#: [id number] MAYANK
[2018-02-23] MEDS: SODIUM CHLORIDE 0.9% 1000ML 1,000 ML IV SCH (13:39)
[2018-02-23] MEDS: ENOXAPARIN SOD INJ 40 MG/0.4 ML SYR SC SCH (16:13)
[2018-02-23] MEDS ORDERED: FENTANYL CITRATE/PF 100MCG/2 ML INJ ONE (16:51)
[2018-02-23] MEDS: ALPRAZOLAM 0.5 MG TAB PO PRN (21:11)
--- NOTE | 2018-02-23 21:21 | Diagnostic Imaging Report ---
Examination: Single AP view of the chest. COMPARISON: None. INDICATION: Line placement DISCUSSION: See impression IMPRESSION: 1. Right PICC line with tip overlying the cavoatrial junction 2. Right mid lung atelectasis. Signed by: Dr. Garry Vásquez M.D. on 02/23/2018 7:46 PM
[2018-02-24] VITALS: BP 123/63
[2018-02-24] MEDS: ONDANSETRON HCL INJ 2 MG/ML VIAL IV PRN (00:18)
[2018-02-24] MEDS: MORPHINE SULFATE INJ 4 MG/ML INJ IV PRN (00:18)
[2018-02-24] MEDS: HYDROCODONE/APAP 5MG-325MG TAB PO PRN ×4 (01:31→21:30)
[2018-02-24] MEDS: LEVALBUTEROL HCL SOLN NEBU 0.63 MG/3 ML NEB INH SCH ×6 (02:38→23:00)
[2018-02-24] MEDS: SODIUM CHLORIDE 0.9% 1000ML 1,000 ML IV SCH ×2 (03:22→18:11)
[2018-02-24 05:54] LABS: BASOPHILS % 0.5 % (0.0-1.0); EOSINOPHILS # (AUTO) 0.3 (0.0-0.4); EOSINOPHILS % 4.4 % (0.0-6.0); HEMATOCRIT 30.9 % (38.2-49.6); HEMOGLOBIN 9.9 g/dL (14.0-18.0); LYMPHOCYTES # (AUTO) 1.6 (1.0-3.2); LYMPHOCYTES % 27.1 % (18.0-39.1); MEAN CORPUSCULAR HEMOGLOBIN 29.3 pg (28-32); MEAN CORPUSCULAR VOLUME 91.4 fL (81-99); MONOCYTES # (AUTO) 0.4 (0.2-0.8); NEUTROPHILS # (AUTO) 3.6 (2.1-6.9); NEUTROPHILS % 60.7 % (38.7-80.0); PLATELET COUNT 306 x10e3/uL (140-360); RED BLOOD COUNT 3.38 x10e6/uL (4.3-5.7); RED CELL DISTRIBUTION WIDTH 15.5 % (11.7-14.4)
[2018-02-24 06:12] LABS: ANION GAP 8.5 mmol/L (8-16); BLOOD UREA NITROGEN < 5 mg/dL (7-26); CALCIUM 8.2 mg/dL (8.4-10.2); CARBON DIOXIDE 26 mmol/L (22-29); CHLORIDE 106 mmol/L (98-107); CREATININE, SERUM 0.65 mg/dL (0.72-1.25); EST GLOMERULAR FILTRATION RATE > 60 ML/MIN (60-); GLUCOSE 71 mg/dL (74-118); POTASSIUM 3.5 mmol/L (3.5-5.1); SODIUM 137 mmol/L (136-145)
[2018-02-24 06:15] LABS: BUN/CREATININE RATIO 8 (6-25)
[2018-02-24] MEDS: TAMSULOSIN HCL 0.4 MG CAP PO SCH (08:19)
[2018-02-24] MEDS: PIPER-TAZ 3.375 GM 50 ML IV SCH ×3 (08:19→18:11)
[2018-02-24] MEDS: PANTOPRAZOLE SOD 40 MG TABEC PO SCH (08:19)
[2018-02-24] MEDS: GABAPENTIN 300 MG CAP PO SCH (08:19)
[2018-02-24] MEDS: PENTOXIFYLLINE 400 MG TAB CR PO SCH (08:19)
[2018-02-24 08:20] VITALS: BP 123/63
--- NOTE | 2018-02-24 08:55 | Progress Note ---
DATE: February 24, 2018 SUBJECTIVE: Patient had his sacral debrided yesterday by general surgery. Currently, doing well with no complaints. He is sitting on the edge of the bed eating his breakfast. I discussed the case yesterday with case management, and that the patient will need to pay $100 per day for fdc, which the patient refuses. The only option for the patient is to be discharged home with IV antibiotics. PICC line has been placed since yesterday. OBJECTIVE VITAL SIGNS: Temperature is 98.9, pulse 92, respiratory rate 20, blood pressure 123/63, O2 sat 97% on 2 L nasal cannula. GENERAL: Not in acute distress. Alert and oriented times 3. Cooperative on examination. HEENT: Head is normocephalic and atraumatic. Eyes: Pupils equal, round and reactive to light bilaterally. Extraocular movements intact bilaterally. NECK: Supple. Good range of motion. Throat with no evidence of any erythema or exudates in the posterior pharynx. Has poor dentition. PULMONARY: Clear to auscultation bilaterally. No wheezing. No rales. No rhonchi. No crackles appreciated. CARDIOVASCULAR: Positive S1 and S2. No murmurs, rubs or gallops appreciated. ABDOMEN: Soft, nondistended and nontender to palpation. Bowel sounds present. MUSCULOSKELETAL: Strength is 5/5 throughout. No evidence of any muscle deficit on examination. No weakness appreciated. NEUROLOGICAL: Cranial nerves II-XII are grossly intact. No evidence of any neurological deficits on exam. SKIN: Intact. Warm to touch. Good cap refill. PSYCHIATRIC: Normal affect and mood. EXTREMITIES: No edema. Good range of motion throughout. LAB FINDINGS: Show white count of 5.8, hemoglobin 9.9, hematocrit 31, and platelets of 306,000. Chemistry: Sodium 137, potassium 3.5, chloride 106, bicarb 26, anion gap 8.5, BUN 5, creatinine 0.65, glucose 71. MICRO: His wound culture from yesterday's debridement is still pending. The previous wound culture showed MRSA. His blood culture showed coag-negative staph. IMAGING STUDIES: None. IMPRESSION 1. Syncope, all resolved. 2. Medically debilitated. 3. Unstageable sacral wounds with underlying infection: Status post debridement performed on February 23, 2018, by Dr. Ding, now awaiting for wound culture. 4. Left lower extremity wound, debrided. 5. History of anxiety. 6. Acid reflux. PLAN: At this time, he had his wound debrided yesterday on February 23, 2018. Pending wound culture. ID is following. PICC line was placed yesterday. Will await for ID recommendations in terms of length of therapy of IV antibiotics. The patient has benefits of fdc, but he has to pay $100 a day in which the patient refuses. The only option for him is to go home with home health and home wound care with IV antibiotics. The patient verbalized understanding. Will also arrange for home PT and OT as well. Otherwise, he is stable with no complaints. Will continue to follow. Job#: [id number] BUNYN
[2018-02-24] MEDS: VANCOMYCIN 1GM/NS 250 ML 250 ML IV SCH ×2 (09:00→20:39)
[2018-02-24] MEDS: FENOFIBRATE 160 MG TAB PO SCH (09:00)
[2018-02-24] MEDS: ALPRAZOLAM 0.5 MG TAB PO PRN ×2 (09:15→18:11)
[2018-02-24 12:00] VITALS: BP 89/54
[2018-02-24] MEDS: COLLAGENASE 5 GM TUBE TOP SCH (15:25)
[2018-02-24 16:00] VITALS: BP 108/54
[2018-02-24] MEDS: ENOXAPARIN SOD INJ 40 MG/0.4 ML SYR SC SCH (18:11)
[2018-02-24 20:00] VITALS: BP 96/50
[2018-02-24] MEDS ORDERED: COLLAGENASE 5 GM TUBE TOP SCH (21:00)
[2018-02-25] VITALS (9 sets, daily range): BP systolic 101–131; BP diastolic 55–66
[2018-02-25] MEDS: PIPER-TAZ 3.375 GM 50 ML IV SCH ×3 (00:18→17:35)
[2018-02-25] MEDS: ALPRAZOLAM 0.5 MG TAB PO PRN ×3 (00:18→18:14)
[2018-02-25] MEDS: MORPHINE SULFATE INJ 4 MG/ML INJ IV PRN (02:31)
[2018-02-25] MEDS: HYDROCODONE/APAP 5MG-325MG TAB PO PRN ×3 (06:20→20:56)
[2018-02-25] MEDS: LEVALBUTEROL HCL SOLN NEBU 0.63 MG/3 ML NEB INH SCH ×5 (07:00→23:38)
[2018-02-25] MEDS: FENOFIBRATE 160 MG TAB PO SCH (09:00)
[2018-02-25] MEDS: TAMSULOSIN HCL 0.4 MG CAP PO SCH (09:03)
[2018-02-25] MEDS: GABAPENTIN 300 MG CAP PO SCH (09:03)
[2018-02-25] MEDS: SODIUM CHLORIDE 0.9% 1000ML 1,000 ML IV SCH ×2 (09:03→20:56)
[2018-02-25] MEDS: PANTOPRAZOLE SOD 40 MG TABEC PO SCH (09:03)
[2018-02-25] MEDS: VANCOMYCIN 1GM/NS 250 ML 250 ML IV SCH ×2 (09:03→20:56)
[2018-02-25] MEDS: PENTOXIFYLLINE 400 MG TAB CR PO SCH (09:03)
[2018-02-25] MEDS: COLLAGENASE 5 GM TUBE TOP SCH (09:03)
--- NOTE | 2018-02-25 10:36 | Progress Note ---
DATE: February 25, 2018 SUBJECTIVE: Patient is doing well today with no complaints. He now has a wound VAC to the sacral region. Will arrange with case management for home wound VAC. OBJECTIVE VITAL SIGNS: Temperature is 98.3, pulse 84, respiratory rate 20, blood pressure 108/55, pulse ox 96% on room air. LABS: No new labs today. MICROBIOLOGY: The wound cultures from the surgical debridement show no growth, but the initial wound culture showed MRSA staph. IMAGING STUDIES: None. PHYSICAL EXAMINATION GENERAL: Not in acute distress. Alert and oriented times 3. Cooperative on examination. HEENT: Head is normocephalic and atraumatic. Eyes: Pupils are equal, round and reactive to light bilaterally. Extraocular movements intact bilaterally. NECK: Supple. Good range of motion. THROAT: No evidence of any erythema or exudates in the posterior pharynx, has poor dentition. PULMONARY: Clear to auscultation bilaterally. No wheezing. No rales. No rhonchi. No crackles appreciated. CARDIOVASCULAR: Positive S1 and S2. No murmurs, rubs or gallops appreciated. ABDOMEN: Soft, nondistended and nontender to palpation. Bowel sounds present. MUSCULOSKELETAL: Strength is 5/5 throughout. No evidence of any musculoskeletal deficit on examination. No weakness appreciated. NEUROLOGICAL: Cranial nerves II-XII are grossly intact. No evidence of any neurological deficits on exam. SKIN: Intact. Warm to touch. Good cap refill. PSYCHIATRIC: Normal affect and mood. EXTREMITIES: No edema. Good range of motion throughout. IMPRESSION 1. Syncope, all resolved. 2. Medically debilitated. 3. Unstageable sacral wound with underlying infection, status post debridement on February 23, 2018, by Dr. Ding, now has a wound VAC. 4. Left lower extremity wound, debrided. 5. History of anxiety. 6. Acid reflux. PLAN: At this time, will continue with IV antibiotics. He will be eventually discharged on oral doxycycline for 4 weeks. He now has a wound VAC, which I will arrange with case management. I discussed this with the floor nurse as well. Continue with PT and OT and resume same home medications. Continue same plan of care. Job#: [id number]
[2018-02-25] MEDS: ENOXAPARIN SOD INJ 40 MG/0.4 ML SYR SC SCH (17:35)
[2018-02-26 00:20] VITALS: BP 111/58
[2018-02-26] MEDS: PIPER-TAZ 3.375 GM 50 ML IV SCH ×3 (00:40→16:20)
[2018-02-26] MEDS: ALPRAZOLAM 0.5 MG TAB PO PRN ×3 (01:32→20:52)
[2018-02-26 05:16] VITALS: BP 124/59
[2018-02-26] MEDS: HYDROCODONE/APAP 5MG-325MG TAB PO PRN ×3 (06:40→20:51)
[2018-02-26] MEDS: LEVALBUTEROL HCL SOLN NEBU 0.63 MG/3 ML NEB INH SCH ×5 (07:00→23:00)
[2018-02-26 07:10] VITALS: BP 117/61
[2018-02-26] MEDS: FENOFIBRATE 160 MG TAB PO SCH (09:00)
[2018-02-26] MEDS: PENTOXIFYLLINE 400 MG TAB CR PO SCH (09:29)
[2018-02-26] MEDS: PANTOPRAZOLE SOD 40 MG TABEC PO SCH (09:29)
[2018-02-26] MEDS: GABAPENTIN 300 MG CAP PO SCH (09:29)
[2018-02-26] MEDS: TAMSULOSIN HCL 0.4 MG CAP PO SCH (09:29)
[2018-02-26] MEDS: COLLAGENASE 5 GM TUBE TOP SCH (09:53)
--- NOTE | 2018-02-26 10:03 | Progress Note ---
DATE: February 26, 2018 SUBJECTIVE: Patient is doing well. He still has a wound VAC. He will continue with the wound VAC hopefully. We are trying to arrange for outpatient wound care clinic. OBJECTIVE VITAL SIGNS: Temperature is 97, pulse 89, respiratory rate 20, blood pressure 124/59. Pulse ox is 97% on room air. LAB FINDINGS: White count 5.8, hemoglobin 9.9, hematocrit 31, platelets 306. Chemistries: No new chemistry. MICROBIOLOGY: Nothing new. IMAGING: Nothing new. PHYSICAL EXAMINATION GENERAL: Not in acute distress. Alert and oriented times 3. Cooperative on examination. HEENT: Head is normocephalic and atraumatic. Eyes: Pupils are equal, round and reactive to light bilaterally. Extraocular movements intact bilaterally. NECK: Supple. Good range of motion. THROAT: No evidence of any erythema or exudates in the posterior pharynx, has poor dentition. PULMONARY: Clear to auscultation bilaterally. No wheezing. No rales. No rhonchi. No crackles appreciated. CARDIOVASCULAR: Positive S1 and S2. No murmurs, rubs or gallops appreciated. ABDOMEN: Soft, nondistended and nontender to palpation. Bowel sounds present. MUSCULOSKELETAL: Strength is 5/5 throughout. No evidence of any musculoskeletal deficit on examination. No weakness appreciated. NEUROLOGICAL: Cranial nerves II-XII are grossly intact. No evidence of any neurological deficits on exam. SKIN: Intact. Warm to touch. Good cap refill. PSYCHIATRIC: Normal affect and mood. EXTREMITIES: No edema. Good range of motion throughout. IMPRESSION 1. Syncope, resolved. 2. Medically debilitated. 3. Unstageable sacral wound with underlying infection, status post debridement on February 23, 2018, by Dr. Ding, now has a wound VAC. 4. Left lower extremity wound, debrided. 5. History of anxiety. 6. Acid reflux. PLAN: At this time, will continue with IV antibiotics. If he is approved for the wound VAC at the wound care clinic, he will be discharged later today. The prescription for doxycycline for 4 weeks is already in the chart. There will be no changes in his other home medications. He will continue with the same regimen. We are going to arrange wet-to-dry dressing as well as PT and OT for home. I have discussed this with the nursing staff as well as case management. Job#: [id number] MH
[2018-02-26] MEDS: VANCOMYCIN 1GM/NS 250 ML 250 ML IV SCH ×2 (10:23→20:51)
[2018-02-26 10:41] VITALS: BP 117/61
[2018-02-26 12:45] VITALS: BP 129/60
[2018-02-26] MEDS: SODIUM CHLORIDE 0.9% 1000ML 1,000 ML IV SCH ×2 (14:45→22:02)
[2018-02-26] MEDS: ENOXAPARIN SOD INJ 40 MG/0.4 ML SYR SC SCH (17:23)
[2018-02-26 20:53] VITALS: BP 146/65
[2018-02-27] VITALS (8 sets, daily range): BP systolic 117–162; BP diastolic 54–76
[2018-02-27] MEDS: LEVALBUTEROL HCL SOLN NEBU 0.63 MG/3 ML NEB INH SCH ×5 (07:10→20:31)
[2018-02-27] MEDS: HYDROCODONE/APAP 5MG-325MG TAB PO PRN ×3 (07:21→22:02)
[2018-02-27] MEDS: FENOFIBRATE 160 MG TAB PO SCH (09:00)
[2018-02-27] MEDS: ALPRAZOLAM 0.5 MG TAB PO PRN ×2 (09:22→22:02)
[2018-02-27] MEDS: TAMSULOSIN HCL 0.4 MG CAP PO SCH (09:23)
[2018-02-27] MEDS: PANTOPRAZOLE SOD 40 MG TABEC PO SCH (09:23)
[2018-02-27] MEDS: PENTOXIFYLLINE 400 MG TAB CR PO SCH (09:23)
[2018-02-27] MEDS: PIPER-TAZ 3.375 GM 50 ML IV SCH ×4 (09:23→23:48)
[2018-02-27] MEDS: GABAPENTIN 300 MG CAP PO SCH (09:23)
[2018-02-27] MEDS: COLLAGENASE 5 GM TUBE TOP SCH (10:09)
[2018-02-27] MEDS: VANCOMYCIN 1GM/NS 250 ML 250 ML IV SCH ×2 (10:09→21:20)
--- NOTE | 2018-02-27 10:37 | Progress Note ---
DATE: February 27, 2018 INTERNAL MEDICINE PROGRESS NOTE SUBJECTIVE: Patient is doing well. Working with physical therapy when I evaluated him. We are waiting for wound VAC to be approved by the insurance company. OBJECTIVE VITAL SIGNS: Temperature is 98, pulse 73, respiratory rate is 18, blood pressure is 134/62, pulse ox 98% on room air. GENERAL: Not in acute distress. Alert and oriented times 3. Cooperative on examination. HEENT: Head is normocephalic and atraumatic. Eyes: Pupils equal, round and reactive to light bilaterally. Extraocular movements intact bilaterally. NECK: Supple. Good range of motion. Throat with no evidence of any erythema or exudates in the posterior pharynx. Has poor dentition. PULMONARY: Clear to auscultation bilaterally. No wheezing. No rales. No rhonchi. No crackles appreciated. CARDIOVASCULAR: Positive S1 and S2. No murmurs, rubs or gallops appreciated. ABDOMEN: Soft, nondistended and nontender to palpation. Bowel sounds present. MUSCULOSKELETAL: Strength is 5/5 throughout. No evidence of any muscle deficit on examination. No weakness appreciated. NEUROLOGICAL: Cranial nerves II-XII are grossly intact. No evidence of any neurological deficits on exam. SKIN: Intact. Warm to touch. Good cap refill. PSYCHIATRIC: Normal affect and mood. EXTREMITIES: No edema. Good range of motion throughout. LAB FINDINGS: Show white count is 5.8, hemoglobin 9.9, hematocrit is 31, and platelets of 306,000. Sodium 137, potassium 3.5, chloride 106, bicarb 26, anion gap 8.5, BUN 5, creatinine is 0.65, and glucose 71. MICROBIOLOGY: Blood cultures repeat are pending. IMPRESSION 1. Syncope, resolved. 2. Medically debilitated. 3. Unstageable sacral wound with underlying infection: Status post debridement on February 23, 2018, by Dr. Ding. Now, has a wound VAC and will be discharged with the wound VAC. 4. Left lower extremity wound, debrided. 5. History of anxiety. 6. Acid reflux. PLAN: At this time, the patient is to continue with IV vancomycin while in the hospital. We are waiting for wound VAC and wound care clinic to be approved hopefully by Thursday. He will continue to work with PT and OT. He will be going home on doxycycline for 4 weeks in which a script is ready in the chart. We are going to get a.m. labs, CBC and chemistry. Will continue same plan of care. I discussed the case with the floor nurse. Job#: [id number] [place]
[2018-02-27] MEDS: SODIUM CHLORIDE 0.9% 1000ML 1,000 ML IV SCH ×2 (11:22→23:48)
[2018-02-27] MEDS: ENOXAPARIN SOD INJ 40 MG/0.4 ML SYR SC SCH (16:21)
[2018-02-28] VITALS (7 sets, daily range): BP systolic 103–149; BP diastolic 53–67
[2018-02-28 05:53] LABS: BASOPHILS # (AUTO) 0.1 (0.0-0.1); BASOPHILS % 1.2 % (0.0-1.0); EOSINOPHILS # (AUTO) 0.3 (0.0-0.4); EOSINOPHILS % 5.2 % (0.0-6.0); HEMATOCRIT 34.1 % (38.2-49.6); HEMOGLOBIN 10.7 g/dL (14.0-18.0); LYMPHOCYTES # (AUTO) 1.6 (1.0-3.2); LYMPHOCYTES % 28.6 % (18.0-39.1); MEAN CORPUSCULAR HEMOGLOBIN 28.7 pg (28-32); MEAN CORPUSCULAR HGB CONC 31.4 g/dL (31-35); MEAN CORPUSCULAR VOLUME 91.4 fL (81-99); MONOCYTES # (AUTO) 0.5 (0.2-0.8); MONOCYTES % 7.8 % (4.4-11.3); NEUTROPHILS # (AUTO) 3.3 (2.1-6.9); PLATELET COUNT 310 x10e3/uL (140-360); RED BLOOD COUNT 3.73 x10e6/uL (4.3-5.7); RED CELL DISTRIBUTION WIDTH 15.9 % (11.7-14.4)
[2018-02-28 06:08] LABS: ANION GAP 12.4 mmol/L (8-16); BLOOD UREA NITROGEN < 5 mg/dL (7-26); CARBON DIOXIDE 25 mmol/L (22-29); CHLORIDE 108 mmol/L (98-107); CREATININE, SERUM 0.72 mg/dL (0.72-1.25); EST GLOMERULAR FILTRATION RATE > 60 ML/MIN (60-); GLUCOSE 71 mg/dL (74-118); POTASSIUM 3.4 mmol/L (3.5-5.1); SODIUM 142 mmol/L (136-145)
[2018-02-28 06:12] LABS: BUN/CREATININE RATIO 7 (6-25)
[2018-02-28] MEDS: HYDROCODONE/APAP 5MG-325MG TAB PO PRN ×3 (06:17→21:18)
[2018-02-28] MEDS: LEVALBUTEROL HCL SOLN NEBU 0.63 MG/3 ML NEB INH SCH ×5 (07:40→23:00)
[2018-02-28] MEDS: PIPER-TAZ 3.375 GM 50 ML IV SCH ×2 (08:25→16:49)
[2018-02-28] MEDS: FENOFIBRATE 160 MG TAB PO SCH (09:00)
[2018-02-28] MEDS: COLLAGENASE 5 GM TUBE TOP SCH (09:32)
[2018-02-28] MEDS: GABAPENTIN 300 MG CAP PO SCH (09:32)
[2018-02-28] MEDS: PANTOPRAZOLE SOD 40 MG TABEC PO SCH (09:32)
[2018-02-28] MEDS: TAMSULOSIN HCL 0.4 MG CAP PO SCH (09:32)
[2018-02-28] MEDS: VANCOMYCIN 1GM/NS 250 ML 250 ML IV SCH ×2 (09:32→21:18)
[2018-02-28] MEDS: PENTOXIFYLLINE 400 MG TAB CR PO SCH (09:32)
[2018-02-28] MEDS: ALPRAZOLAM 0.5 MG TAB PO PRN ×3 (09:35→21:18)
[2018-02-28] MEDS ORDERED: POTASSIUM CHLORIDE 20 MEQ TAB CR PO ONE (10:15)
--- NOTE | 2018-02-28 10:40 | Progress Note ---
DATE: February 28, 2018 INTERNAL MEDICINE PROGRESS NOTE SUBJECTIVE: Patient doing well with no complaints. We are now awaiting for wound VAC arrangement for home versus wound care clinic. Possibly will be discharged tomorrow. Otherwise, patient is doing well with no other issues. OBJECTIVE/PHYSICAL EXAMINATION: VITAL SIGNS: Temperature is 97.2, pulse 63, respiratory rate is 20, blood pressure 103/53, pulse ox 95% on room air. GENERAL: Not in acute distress, alert and oriented x3, cooperative on examination. HEENT: Head: Normocephalic, atraumatic. Eyes: Pupils equal, round, and reactive to light bilaterally. Extraocular movements intact bilaterally. Throat: No evidence of any erythema or exudates in the posterior pharynx. Has poor dentition. NECK: Supple with good range of motion. PULMONARY: Clear to auscultation bilaterally. No wheezing, no rales, no rhonchi, no crackles appreciated. CARDIOVASCULAR: Positive S1 and S2. No murmurs, rubs, or gallops appreciated. ABDOMEN: Soft, nondistended, nontender to palpation. Bowel sounds present. MUSCULOSKELETAL: Strength is 5/5 throughout. No evidence of any musculoskeletal deficit on examination. No weakness appreciated. NEUROLOGICAL: Cranial nerves II through XII are grossly intact. No evidence of any neurological deficits on exam. SKIN: Intact. Warm to touch. Good cap refill. PSYCHIATRIC: Normal affect and mood. EXTREMITIES: No edema. Good range of motion throughout. LAB FINDINGS: Showed white count 5.7, hemoglobin 10.7, hematocrit is 34, platelets of 310,000. Chemistry: Sodium 142, potassium 3.4, chloride is 108, bicarb 25, anion gap of 12, BUN is 5, creatinine 0.72, glucose is 71, calcium is 9. Repeat blood cultures show no growth. Surgical wound cultures were negative, but the original wound cultures were positive for MRSA. IMAGING STUDIES: None. IMPRESSION: 1. Syncope--resolved. 2. Medically debilitated. 3. Unstageable sacral wound with underlying infection, status post debridement on February 23, [address] Ding, now has a wound vacuum-assisted closure and will need to be discharged with wound vacuum-assisted closure, and will be discharged on oral antibiotics. 4. Left lower extremity wound, status post debridement. 5. History of anxiety. 6. Acid reflux. 7. Hypokalemia. PLAN: At this time, will replace potassium with 40 mEq p.o. x1. Continue with IV antibiotics while here. Will await for wound VAC arrangement either at home or with wound care clinic. Hopefully by Thursday, this will all be approved. He will be discharged on oral doxycycline for 4 total weeks as recommended by ID and the prescription is already in the chart. His labs have been reviewed this morning with no issues. Vital signs are stable. Patient will likely be discharged tomorrow if everything has been approved. Job#: [id number]
[2018-02-28] MEDS: SODIUM CHLORIDE 0.9% 1000ML 1,000 ML IV SCH (16:49)
[2018-02-28] MEDS: ENOXAPARIN SOD INJ 40 MG/0.4 ML SYR SC SCH (16:50)
[2018-03-01] VITALS (7 sets, daily range): BP systolic 100–126; BP diastolic 49–60
[2018-03-01] MEDS: PIPER-TAZ 3.375 GM 50 ML IV SCH ×3 (00:10→16:00)
[2018-03-01] MEDS: LEVALBUTEROL HCL SOLN NEBU 0.63 MG/3 ML NEB INH SCH ×6 (03:00→23:00)
[2018-03-01] MEDS: SODIUM CHLORIDE 0.9% 1000ML 1,000 ML IV SCH ×2 (03:22→06:30)
[2018-03-01] MEDS: HYDROCODONE/APAP 5MG-325MG TAB PO PRN ×3 (06:10→19:08)
[2018-03-01] MEDS: ALPRAZOLAM 0.5 MG TAB PO PRN ×2 (07:30→13:06)
[2018-03-01] MEDS: TAMSULOSIN HCL 0.4 MG CAP PO SCH (09:00)
[2018-03-01] MEDS: FENOFIBRATE 160 MG TAB PO SCH (09:00)
[2018-03-01] MEDS: GABAPENTIN 300 MG CAP PO SCH (09:00)
[2018-03-01] MEDS: PANTOPRAZOLE SOD 40 MG TABEC PO SCH (09:00)
[2018-03-01] MEDS: VANCOMYCIN 1GM/NS 250 ML 250 ML IV SCH ×2 (09:00→21:14)
[2018-03-01] MEDS: PENTOXIFYLLINE 400 MG TAB CR PO SCH (09:00)
[2018-03-01] MEDS: COLLAGENASE 5 GM TUBE TOP SCH (10:00)
--- NOTE | 2018-03-01 10:13 | Progress Note ---
DATE: March 01, 2018 SUBJECTIVE: Patient is doing well today with no complaints. We are waiting for wound VAC arrangement for home. He has no other complaints at this time. OBJECTIVE VITAL SIGNS: Temperature is 97.6, pulse 92, respiratory rate 20, blood pressure 122/58, pulse ox 98% on room air. LAB FINDINGS: White count 5.7, hemoglobin 10, hematocrit 34, platelets 310. Chemistries: Sodium 142, potassium 3.4, chloride 108, bicarb 25, anion gap 12, BUN 5, creatinine 0.72. MICROBIOLOGY: Repeat blood cultures were no growth to date. PHYSICAL EXAMINATION GENERAL: In no acute distress, alert and oriented x3, cooperative on examination. HEENT: Head is normocephalic and atraumatic. Eyes: Pupils are equal and reactive to light bilaterally. Extraocular movements are intact bilaterally. NECK: Supple with good range of motion. THROAT: No evidence of any erythema or exudates in the posterior pharynx, has poor dentition. PULMONARY: Clear to auscultation bilaterally. No wheezing, no rales, no rhonchi, no crackles appreciated. CARDIOVASCULAR: Positive S1 and S2. No murmurs, rubs, or gallops appreciated. ABDOMEN: Soft, nondistended, nontender to palpation. Bowel sounds present. MUSCULOSKELETAL: Strength is 5/5 throughout. No evidence of any musculoskeletal deficit on examination. No weakness appreciated. NEUROLOGICAL: Cranial nerves II through XII are grossly intact. No evidence of any neurological deficits on exam. SKIN: Intact. Warm to touch. Good cap refill. PSYCHIATRIC: Normal affect and mood. EXTREMITIES: No edema. Good range of motion throughout. IMPRESSION 1. Syncope--resolved. 2. Medically debilitated. 3. Unstageable sacral wound with underlying infection, status post debridement on February 23, [address] Ding, now has a wound VAC for assisted closure and will be discharged with a wound VAC and will be discharged on oral antibiotics. The prescription is ready in the chart. 4. Left lower extremity wound, status post debridement. 5. History of anxiety. 6. Acid reflux. 7. Hypokalemia. PLAN: At this time, the patient is doing well with no other complaints. We are waiting for the wound VAC to be arranged. I have already discussed this with case management. Oral antibiotics already in the chart. Once his wound VAC is approved, he is good to go home. Home health has been arranged as well. Job#: [id number]
[2018-03-01] MEDS: ENOXAPARIN SOD INJ 40 MG/0.4 ML SYR SC SCH (17:00)
[2018-03-02] VITALS: BP 112/53
[2018-03-02] MEDS: LEVALBUTEROL HCL SOLN NEBU 0.63 MG/3 ML NEB INH SCH ×3 (03:00→10:37)
[2018-03-02 04:00] VITALS: BP 122/60
[2018-03-02] MEDS: HYDROCODONE/APAP 5MG-325MG TAB PO PRN (06:26)
[2018-03-02] MEDS: ALPRAZOLAM 0.5 MG TAB PO PRN (06:44)
[2018-03-02 08:32] VITALS: BP 114/53
[2018-03-02] MEDS: FENOFIBRATE 160 MG TAB PO SCH (09:00)
[2018-03-02 09:20] VITALS: BP 114/53
[2018-03-02] MEDS: VANCOMYCIN 1GM/NS 250 ML 250 ML IV SCH (09:21)
[2018-03-02] MEDS: TAMSULOSIN HCL 0.4 MG CAP PO SCH (09:21)
[2018-03-02] MEDS: COLLAGENASE 5 GM TUBE TOP SCH (09:22)
[2018-03-02] MEDS: GABAPENTIN 300 MG CAP PO SCH (09:22)
[2018-03-02] MEDS: PENTOXIFYLLINE 400 MG TAB CR PO SCH (09:22)
[2018-03-02] MEDS: PANTOPRAZOLE SOD 40 MG TABEC PO SCH (09:22)
[2018-03-02] MEDS ORDERED: DOXYCYCLINE HY100 MG PO (09:45)
--- NOTE | 2018-03-02 11:06 | Discharge Summary ---
FINAL DISCHARGE DIAGNOSES 1. Syncope, resolved. 2. Medical noncompliance. 3. Unstageable sacral wound with underlying infection, status post debridement on February 23, 2018, by Dr. Ding, now with a wound VAC. Will be discharged with a wound VAC with oral antibiotics of doxycycline for 4 total weeks. 4. Left lower extremity wound, status post debridement. 5. History of anxiety. 6. Acid reflux. CONSULTANTS: General surgery and infectious disease. VITAL SIGNS: .Temperature is 97.7, pulse 55, respiratory rate 16, blood pressure 114/53, pulse ox 99% on room air. LAB FINDINGS: Show white count 5.7, hemoglobin 10.7, hematocrit 34, and platelets of 310,000. Coagulations: PT 14, INR 1.1 and PTT 39.5. Chemistry: Sodium 142, potassium 3.4, chloride 108, bicarb 25, anion gap of 12, BUN is 5, creatinine 0.72, glucose is 71. Calcium is 9. Urinalysis was negative. Initial blood cultures showed coag-negative staph, 2 out of 2. Wound culture showed MRSA staph. Repeat wound culture status post debridement was negative. Repeat blood cultures were found to be negative. IMAGING STUDIES: Chest x-ray with left-sided pleural thickening may reflect soft tissue or likely a left-sided effusion. CT of chest was performed and showed multiple bilateral displaced rib fractures with minimal adjacent pleural thickening and chronic effusion seen on chest x-ray. He also has a right upper peritracheal consolidation mass like that may represent area of fibrosis related to prior infection. Recommend followup CT of chest without contrast in 3 months. The patient also has bilateral emphysema. I discussed this with the patient. He is advised to follow up as an outpatient with repeat CT in 3 months span with his PCP. He verbalized understanding. HOSPITAL COURSE: This is a 72-year-old male who lives alone, and has multiple medical issues. Comes in after having a presyncopal episode at home. The patient reports that he did not have any loss of consciousness in which he actually dragged himself to the ground. He was found down by a smash hand, and was brought in for further evaluation. His syncope workup was found to be negative. He had an unstageable sacral wound, which general surgery got involved and consulted, as well as ID. The patient had an unstageable sacral wound, status post debridement on February 23, 2018, by Dr. Ding in which a wound VAC was placed. He was on IV antibiotics here. His blood cultures showed initial blood cultures were coag-negative staph, 2 out of 2, but repeat blood cultures were found to be negative. His wound culture was positive for MRSA in which he will be discharged on oral doxycycline for 4 weeks. The patient will also be discharged with a wound VAC, and will go to the wound care clinic. His imaging studies, CT of the chest showed a mass-like lesion. Unsure if this is infectious versus some other etiology. Per radiology, they recommend a CT of the chest without contrast in 3 month's span. I discussed this with the patient. He verbalized understanding to follow up with his PCP and get a repeat CT of chest at that time. He also had left lower extremity wound, which was bedside debrided. Otherwise, the patient was doing well with no other complaints. He worked with PT and OT. He was supposed to go to [facility], but he cannot afford it. The patient was then discharged home with home health, home wound care and wound VAC, as well as oral antibiotics. On the day of discharge, vital signs stable, labs remained stable. The patient was seen and evaluated and examined thoroughly on the day of discharge. No other complaints. The patient verbalized understanding and agrees to the plan of care to follow up accordingly as an outpatient with the primary care physician in 1 week and wound care clinic as per schedule, ID and general surgery in 2 weeks' time. MEDICATIONS: See med reconciliation form. DISPOSITION: Home. CONDITION: Stable. DIET: Heart-healthy. In the event of any worsening symptoms, the patient was advised to come back to the ED for further evaluation. The discharge summary took greater than 35 minutes. Again, the patient was advised to follow up on the CT of chest in 3 month's span as per recommendations by the radiologist. TRACE COHEN MD Job#: [id number] [place]
== END 2018-03-02 11:54 | disposition home or self-care (01) | DRG 571 ==
LOC: ER 12:57 → ERHOLD 17:04 → IMCU 17:56 → MED/SURG3 02-20 15:43 → OBSVTOIN 02-21 13:22 → MED/SURG3 03-02 05:58
PROVIDERS: ADMIT Internal Medicine; ATTEND Internal Medicine
PROC: 02HV33Z Insertion of Infusion Device into Superior Vena Cava, Percutaneous Approach (ICD-10-PCS; 2018-02-23)
PROC: 0JB70ZZ Excision of Back Subcutaneous Tissue and Fascia, Open Approach (ICD-10-PCS; principal; 2018-02-23 09:30)
DX: L89.150 Pressure ulcer of sacral region, unstageable (principal); S22.42XA Multiple fractures of ribs, left side, initial encounter for closed fracture; R55 Syncope and collapse; R53.81 Other malaise; F41.9 Anxiety disorder, unspecified; K21.9 Gastro-esophageal reflux disease without esophagitis; Z91.19 Patient's noncompliance with other medical treatment and regimen; W01.0XXA Fall on same level from slipping, tripping and stumbling without subsequent striking against object, initial encounter; Y92.009 Unspecified place in unspecified non-institutional (private) residence as the place of occurrence of the external cause; J43.9 Emphysema, unspecified; E87.6 Hypokalemia; B95.62 Methicillin resistant Staphylococcus aureus infection as the cause of diseases classified elsewhere; S81.812A Laceration without foreign body, left lower leg, initial encounter
CPT/HCPCS: 36415; 36569; 71045; 71260; 80048; 80053; 80202; 81001; 82550; 82553; 82948; 83605; 83735; 83880; 84484; 85025; 85610; 85730; 87040; 87071; 87075; 87186; 87205; 93005; 94640; 96361; 96367; 97139; 97605; 99284; G0378; J1650; J2001; J2270; J2405; J2543; J3370; J7030; Q9967

== ENCOUNTER 2018-03-03 11:17 | Outpatient (RCR) | payer OTHER ==
[~2018-03-03 11:17] MED LIST: ALLOPURINOL300 MG PO; ALPRAZOLAM0.5 M1; BENZONATATE100 MG PO; COLCRYS0.6 MG PO; DOXYCYCLINE HY100 MG PO; FENOFIBRATE145 MG PO; FLOMAX0.4 MG PO; GABAPENTIN300 MG PO; LEVALBUTER0.63 MG/3 NEB; METHOCARBAMOL750 MG PO; OMEPRAZOLE40 MG PO; PENTOXIFYLLINE400 MG PO; VENTOLIN HFA18 GM INH; VITAMIN D1000 UNI1 PO
--- NOTE | 2018-03-03 13:46 | Diagnostic Imaging Report ---
Exam: Sacral x-rays frontal and lateral History: Pressure ulcer of sacral region Comparison: None. Findings: The bones are osteopenic. The low sacrum is suboptimally visualized. Superiorly, the sacrum including the foramina appear intact without acute fracture or destructive change. Sacroiliac joints are intact. Degenerative disc changes of the lower lumbar spine. No gross soft tissue defect. Impression: Poor visualization of the low sacrum on the lateral radiograph. No gross osseous destructive lesions. If there is strong clinical concern for sacral osteomyelitis, 3-phase nuclear medicine bone scan or MRI with and without contrast is suggested. Signed by: Dr. Simon Clifford M.D. on 03/03/2018 1:43 PM
[2018-03-03] MEDS ORDERED: LIDOCAINE VISC 2% SOLN 15 ML UDC ONE (15:05)
== END 2018-03-21 ==
LOC: WCC 11:17
PROVIDERS: ATTEND Family Medicine
DX: E11.65 Type 2 diabetes mellitus with hyperglycemia (principal); E11.69 Type 2 diabetes mellitus with other specified complication; L89.154 Pressure ulcer of sacral region, stage 4; L89.92 Pressure ulcer of unspecified site, stage 2; I10 Essential (primary) hypertension; B95.62 Methicillin resistant Staphylococcus aureus infection as the cause of diseases classified elsewhere; Z74.01 Bed confinement status
CPT/HCPCS: 72220; 87071; 87075; 87186; 87205